=== PATIENT | female | born 1960 | race Caucasian/White ===

== ENCOUNTER 2021-01-01 11:01 | Emergency (ER) | payer MEDICARE ==
[~2021-01-01] VITALS: Ht 157.5 cm; Wt 44.5 kg
== END 2021-01-01 11:40 | disposition home or self-care (01) ==
LOC: ER 11:35
DX: M79.632 Pain in left forearm (principal); S52.92XD Unspecified fracture of left forearm, subsequent encounter for closed fracture with routine healing; J44.9 Chronic obstructive pulmonary disease, unspecified; F17.210 Nicotine dependence, cigarettes, uncomplicated
CPT/HCPCS: 99282

== ENCOUNTER → 2024-01-24 | Outpatient (REF) | payer MEDICARE, MEDICAID ==
[~2024-01-24] MED LIST: CIPRO250 MG PO; DICYCLOMINE HCL20 MG PO; ONDANSETRON ODT4 MG PO; PANTOPRAZOLE SO40 MG PO
== END ==
LOC: MAMMO 10:24
PROVIDERS: ATTEND Internal Medicine
DX: Z12.31 Encounter for screening mammogram for malignant neoplasm of breast (principal)
CPT/HCPCS: 77067

== ENCOUNTER → 2024-04-28 | Outpatient (REF) | payer MEDICARE, MEDICAID | LOC: CT 10:37 | PROVIDERS: ATTEND Internal Medicine | DX: Z12.2 Encounter for screening for malignant neoplasm of respiratory organs (principal) | CPT/HCPCS: 71250 ==